=== PATIENT | female | born 1945 | race Caucasian/White ===

== ENCOUNTER 2016-11-08 05:50 | Day surgery (SDC) | payer MEDICARE, OTHER ==
[~2016-11-08] VITALS: Ht 157.5 cm; Wt 76.2 kg
[~2016-11-08 05:50] MED LIST: AMLODIPINE BESYL5 MG PO; BIOTIN5000 MCG PO; CYCLOBENZAPRINE10 MG PO; CYMBALTA60 MG PO; DAYPRO600 MG PO; DOLOPHINE HCL5 MG PO; LEVAQUIN500 MG PO; LORAZEPAM1 MG PO; LYRICA100 MG PO; MICARDIS80 MG PO; OMEPRAZOLE20 MG PO; OXYBUTYNIN CHLOR5 MG PO; PERCOCET 5-3251 EACH PO; PERCOCET 7.5-31 EACH PO; VITAMIN D5000 UNIT PO; VOLTAREN-XR100 MG PO
[2016-11-08] MEDS ORDERED: REQUIP0.5 MG PO (06:12)
[2016-11-08] MEDS ORDERED: MICARDIS80 MG PO (06:13)
--- NOTE | 2016-11-08 08:53 | NUR ---
11/08/16 0853 Elke Hui 0847 PATIENT ARRIVES SLEEPING, ORAL AIRWAY IN PLACE. RESP EVEN AND UNLABORED. MASK AT 6 LITERS. 0850 PATIENT RESPONDS TO VERBAL STIMULI, ORAL AIRWAY REMOVED.
--- NOTE | 2016-11-08 09:40 | NUR ---
PT RESTING IN BED, ALERT AND ORIENTED. SHE SEEMED PREPARED AND REALLY READY FOR SOME RELIEF FOLLOWING HER LAP BRET. SHE MENTIONED THAT HER IS IN [place], AND WAS UNABLE TO GET BACK IN TIME TO BE HERE. SHE DROVE HERSELF THIS MORNING, WILL HAVE [facility] CALL FOR A CARERIDE FOR PT WHEN SHE IS READY TO RETURN HOME. PT REQUESTED PRAYER, WILL FOLLOW NEEDED
--- NOTE | 2016-11-08 10:00 | NUR ---
0940: PATIENT BACK IN DAY SURGERY ROOM FROM PACU. VERY DROWSY, BUT AWAKENS TO VOICE EASILY. FALLS BACK TO SLEEP EASILY. STATES PAIN IMPROVED. IV SITE WNL. ABDOMINAL DRESSINGS X 4. MODERATE AMOUNT OF SHADOWING SEEN ON FAR RIGHT ABDOMINAL TROCAR SITE DRESSING. SCDs ON. CALL LIGHT WITHIN REACH. WILL LET REST FOR NOW. EDUCATED PATIENT NOT TO ATTEMPT OOB WITHOUT ASSISTANCE.
--- NOTE | 2016-11-08 13:10 | NUR ---
1135: PATIENT ASSISTED OOB AND TO BATHROOM. GAIT STEADY. VOID WITHOUT DIFFICULTY. GAIT STEADY BACK TO ROOM. MEDICATED FOR PAIN WITH IV DILAUDID. SANDWICH ORDERED. CALL LIGHT WITHIN REACH. 1235: PATIENT TOLERATED SANDWICH. MEDICATED FOR PAIN WITH 2 TABS OF PERCOCET. CALL LIGHT WITHIN REACH.
[2016-11-08] MEDS ORDERED: PERCOCET 5-3251 EACH PO (14:55)
--- NOTE | 2016-11-09 08:29 | OR ---
[facility] [address] [place], [place] [address] Signed DATE OF PROCEDURE: 11/08/16 PREOPERATIVE DIAGNOSES Chronic cholecystitis with cholelithiasis. Elevated liver function test. POSTOPERATIVE DIAGNOSES Chronic cholelithiasis with Choledocholithiasis. Elevated liver function tests. PROCEDURES Laparoscopic cholecystectomy with intraoperative cholangiogram. Needle liver biopsy. ESTIMATED BLOOD LOSS: Minimal. FINDINGS Svetlana had a small stone in her distal common bile duct. She did have some dilation to the cystic and common bile duct. The common bile duct stone was mobile. Contrast did flow into the duodenum. She also had chronic inflammatory changes to the gallbladder wall with multiple small 3-4 mm black cholesterol stones in her gallbladder. Overall, her liver had good color and just a little bit of fibrosis along the edge. INDICATIONS Svetlana is a 70-year-old female who has had significant trouble with right upper quadrant and epigastric abdominal pain associated with nausea. It radiates through to her back. She ended up with an ultrasound and there were multiple mobile gallstones in her gallbladder. It was thought there were gallstones up to 1.3 cm in diameter. However, we found 2 lymph nodes in the triangle of Calot that I suspect were both about a centimeter or so in size and that is probably what the ultrasound was seeing. Again, the common bile duct was a little dilated around 8.3 mm in diameter. She also seemed to cordoba v e a little atrophy of the pancreas on a previous CT scan, the reasons were not clear. She says she has not drank in the past. She does not describe any recurrent episodes of pancreatitis. We see that her preoperative labs showed that her AST is 279, ALT i s 698, alkaline phosphatase is 309, total bilirubin is normal at 0.6. She is a little anemic with a hemoglobin of 10.2 and a mean cell volume of 78. I had met with Svetlana in the office and I gave her a booklet on the gallbladder. We discussed the location and function of the gallbladder. We discussed laparoscopic versus open cholecystectomy. She understands the expected intra and postop course. There is risk to surgery including, but not limited to bleeding, infection, scarring, change in contour of the s kin, damage to bowel, damage to the main bile duct, incisional hernias and other unforeseen comorbidities. There is always the possible need for ERCP for patients who have Electronically Signed By: COURTNEY JAMA MD 11/09/16 0829 PATIENT NAME: SVETLANA ESCOTO OPERATIVE REPORT DATE OF : 49 PHYSICIAN: COURTNEY JAMA MD REPORT #: [id number] REPORT IS CONFIDENTIAL AND NOT TO BE RELEASED WITHOUT AUTHORIZATION [facility] [address] [place] [id number] Signed cholelithiasis. She had expressed understanding and wished to proceed. PROCEDURE NOTE Svetlana was taken into our operating room and placed in the supine position under general endotracheal tube anesthesia. She was given preoperative antibiotics along with subcutaneous heparin. SCDs were utilized. She was then prepped and draped in the usu al sterile fashion. All trocars were placed in usual positions under direct visualization of the camera without difficulty. The gallbladder was grasped and elevated in the right upper quadrant. She has a very long floppy, chronically inflamed gallbladder. We had taken pictures throughout for photo documentation. The triangle of Calot was carefully dissected free and a clip was placed across the cystic duct and it was divided. The 2 lymph nodes of Calot were dissected free and left in situ. We then inserted our intraoperative cholangiogram into the cystic duct. The intraoperative cholangiogram was performed as above. The cystic duct stump was secured with a PDS Endoloop and 2 clips were placed on the cystic duct stump to andrew its location. After this, the gal l bladder was carefully removed from the gallbladder fossa with the help of the cautery and placed into an EndoCatch bag. The right upper quadrant was irrigated and suctioned out until clear. We then took a core needle biopsy of the right lobe of the liver several centimeters behind the gallbladder fossa. Hemostasis was easily achieved with the cautery. After this, we used our laparoscopic suturing device to pass 0 Vicryl suture on either side of the fascia of the subxiphoid trocar site. This was tied down t o close this fascia primarily. After this, the gas was allowed to escape and all the remaining trocars were removed. The gallbladder was passed off the field and opened on the back table via our circulating nurse. We closed the fascia of the supraumbilical trocar site with interrupted [id number] and simple 0 Vicryl sutures. Local anesthetic was copiously injected into all trocar sites. Each trocar site was irrigated and suctioned out until clear. The skin and dermis of each trocar site was closed with interrupted 3-0 subcuticular Monocryl sutures. Dry gauze and tape was applied to all incisions. Svetlana was awakened from her anesthesia, extubated in the OR, and taken to recovery room in stable condition. MD CHAO Cervantes/Modl /[id number] cc: Electronically Signed By: COURTNEY JAMA MD 11/09/16 0829 PATIENT NAME: SVETLANA ESCOTO OPERATIVE REPORT DATE OF : 49 PHYSICIAN: COURTNEY JAMA MD REPORT #: [id number] REPORT IS CONFIDENTIAL AND NOT TO BE RELEASED WITHOUT AUTHORIZATION [facility] [address] [place] [address] Signed MD Parish Rhoades MD Electronically Signed By: COURTNEY JAMA MD 11/09/16 0829 PATIENT NAME: SVETLANA ESCOTO OPERATIVE REPORT DATE OF : 49 PHYSICIAN: COURTNEY JAMA MD REPORT #: [id number] REPORT IS CONFIDENTIAL AND NOT TO BE RELEASED WITHOUT AUTHORIZATION
== END 2016-11-08 15:25 | disposition home or self-care (01) ==
LOC: DS 05:50
PROVIDERS: Colon & Rectal Surgery
PROC: BF12YZZ Fluoroscopy of Gallbladder using Other Contrast (ICD-10-PCS; 2016-11-08)
PROC: 0FB00ZX Excision of Liver, Open Approach, Diagnostic (ICD-10-PCS; 2016-11-08)
PROC: 0FT44ZZ Resection of Gallbladder, Percutaneous Endoscopic Approach (ICD-10-PCS; principal; 2016-11-08 06:45)
DX: K80.10 Calculus of gallbladder with chronic cholecystitis without obstruction (principal); K73.9 Chronic hepatitis, unspecified; I25.10 Atherosclerotic heart disease of native coronary artery without angina pectoris; I10 Essential (primary) hypertension; Q21.1 Atrial septal defect; G47.33 Obstructive sleep apnea (adult) (pediatric); K21.9 Gastro-esophageal reflux disease without esophagitis; Z87.442 Personal history of urinary calculi; M85.80 Other specified disorders of bone density and structure, unspecified site; F32.9 Major depressive disorder, single episode, unspecified; G89.4 Chronic pain syndrome; M79.7 Fibromyalgia; Z95.0 Presence of cardiac pacemaker; Z90.711 Acquired absence of uterus with remaining cervical stump; E66.01 Morbid (severe) obesity due to excess calories; Z98.84 Bariatric surgery status; Z88.5 Allergy status to narcotic agent; Z88.8 Allergy status to other drugs, medicaments and biological substances; Z68.31 Body mass index [BMI] 31.0-31.9, adult; Z98.890 Other specified postprocedural states; Z79.899 Other long term (current) drug therapy
CPT/HCPCS: 00790; 74300; 88304; 88307; 88313; J0360; J1170; J1644; J1885; J1956; J2250; J2405; J2550; J2704; J3010; J7120; Q9967

== ENCOUNTER 2017-04-27 11:50 | Emergency (ER) | payer MEDICARE, OTHER ==
[~2017-04-27] VITALS: Ht 157.5 cm; Wt 76.2 kg
[~2017-04-27 11:50] MED LIST changes: +REQUIP0.5 MG PO
[2017-04-27] MEDS ORDERED: CLONAZEPAM0.5 MG PO (12:04)
[2017-04-27] MEDS ORDERED: PRAMIPEXOLE DI0.5 MG PO (12:05)
[2017-04-27] MEDS ORDERED: VENTOLIN HFA18 GM (12:06)
[2017-04-27] MEDS ORDERED: IRON236 MG PO (12:06)
[2017-04-27] MEDS ORDERED: METOLAZONE10 MG PO (12:07)
[2017-04-27] MEDS ORDERED: BISOPROLOL FUMA10 MG PO (12:08)
[2017-04-27] MEDS ORDERED: ALDACTONE25 MG PO (12:09)
[2017-04-27] MEDS ORDERED: PROAIR HFA8.5 GM INH (15:52)
[2017-04-27] MEDS ORDERED: METHYLPREDNISOLO4 M1 PO (15:57)
== END 2017-04-27 16:19 | disposition home or self-care (01) ==
LOC: ED 11:50
DX: J45.901 Unspecified asthma with (acute) exacerbation (principal); J20.9 Acute bronchitis, unspecified; I10 Essential (primary) hypertension; Z88.5 Allergy status to narcotic agent; Z88.1 Allergy status to other antibiotic agents; Z88.8 Allergy status to other drugs, medicaments and biological substances; Z79.899 Other long term (current) drug therapy
CPT/HCPCS: 71046; 80053; 82803; 83880; 84484; 85025; 94640; 96374; 96375; 99284; J1170; J1885; J2930

== ENCOUNTER 2018-07-04 23:52 | Emergency (ER) | payer MEDICARE, OTHER ==
[~2018-07-04] VITALS: Ht 157.5 cm; Wt 86.2 kg
--- OUTSIDE RECORDS SUMMARY | ~2018-07-04 | XMS | Clinical Summary ---
Demographics + + + | Address | [address] | | | [place] [address] | + + + | Home Phone | | + + + | Preferred Language | Unknown | + + + | Marital Status | | + + + | Oriental Orthodox Affiliation | Unknown | + + + | Race | Unknown | + + + | Ethnic Group | Unknown | + + + Author + + + | Author | [facility] | + + + | Organization | [facility] | + + + | Address | Unknown | + + + | Phone | Unavailable | + + + Support + + +---------+ + | Name | Relationship | Address | Phone | + + +---------+ + | Criselda Moser | ECON | Unknown | | + + +---------+ + Care Team Providers + +------+ + | Care School Guidance Counselor Name | Role | Phone | + +------+ + | Ada Owens MD | PP | | + +------+ + Allergies + + + + + + | Active Allergy | Reactions | Severity | Noted | Comments | | | | | Date | | + + + + + + | Cephalexin | Itching | Medium | 03/27/19 | | | | | | 17 | | + + + + + + | Lisinopril | Cough | Low | 12/30/19 | | | | | | 18 | | + + + + + + | Morphine | Hallucinations | Medium | 03/07/19 | | | | | | 15 | | + + + + + + | Hydrocodone-Acetamin | Nausea and Vomiting | Low | 03/07/19 | | | ophen | | | 15 | | + + + + + + Current Medications + + +--------+---------+------+------+-------+ | Prescription | Sig. | Disp. | Refills | Star | End | Statu | | | | | | t | Date | s | | | | | | Date | | | + + +--------+---------+------+------+-------+ | DULoxetine | Take 60 mg by mouth | | | | | Activ | | (CYMBALTA) [address] | daily. | | | | | e | | capsule | | | | | | | + + +--------+---------+------+------+-------+ | pregabalin | Take 100 mg by mouth | | | | | Activ | | (LYRICA) 100 MG | 2 (two) times | | | | | e | | capsule | daily. | | | | | | + + +--------+---------+------+------+-------+ | cyanocobalamin | Take 1,000 mcg by | | | | | Activ | | (VITAMIN B-12) 1000 | mouth daily. | | | | | e | | MCG tablet | | | | | | | + + +--------+---------+------+------+-------+ | calcium | Take 1 tablet by | | | | | Activ | | citrate-vitamin D | mouth daily. | | | | | e | | (CITRACAL+D) 315-200 | | | | | | | | MG-UNIT per tablet | | | | | | | + + +--------+---------+------+------+-------+ | docusate sodium | Take 100 mg by mouth | | | | | Activ | | (COLACE) 50 MG | 2 (two) times | | | | | e | | capsule | daily. | | | | | | + + +--------+---------+------+------+-------+ | ascorbic acid | Take 500 mg by mouth | | | | | Activ | | (VITAMIN C) 250 MG | daily. | | | | | e | | CHEW | | | | | | | + + +--------+---------+------+------+-------+ | Polyethyl | Apply 1 drop to eye | | | | | Activ | | Glycol-Propyl Glycol | 3 (three) times | | | | | e | | (SYSTANE) 0.4-0.3 % | daily. | | | | | | | GEL | | | | | | | + + +--------+---------+------+------+-------+ | diclofenac | Take 75 mg by mouth | | | | | Activ | | (VOLTAREN) 75 MG EC | 2 (two) times daily. | | | | | e | | tablet | | | | | | | + + +--------+---------+------+------+-------+ | clonazePAM | Take 0.5 mg by mouth | | | 09/2 | | Activ | | (KLONOPIN) 0.5 MG | daily. Taking 0.25 | | | 1/20 | | e | | tablet | mg in the day and | | | 17 | | | | | 0.5 mg at night | | | | | | + + +--------+---------+------+------+-------+ | omeprazole | Take 20 mg by mouth | | | | | Activ | | (PRILOSEC) 20 MG | 2 (two) times daily. | | | | | e | | capsule | | | | | | | + + +--------+---------+------+------+-------+ | Biotin 5000 MCG | Take 5,000 mcg by | | | | | Activ | | CAPS | mouth 3 (three) | | | | | e | | | times daily. | | | | | | + + +--------+---------+------+------+-------+ | albuterol | Inhale 2 puffs into | | | | | Activ | | (PROVENTIL | the lungs every 6 | | | | | e | | HFA;VENTOLIN HFA) | (six) hours as | | | | | | | 108 (90 Base) | needed for Wheezing. | | | | | | | MCG/ACT inhaler | | | | | | | + + +--------+---------+------+------+-------+ | diclofenac | Apply topically | | | 05/2 | | Activ | | (VOLTAREN) 1 % | daily. | | | 03/22 | | e | | | | | | 18 | | | + + +--------+---------+------+------+-------+ | bisoprolol | Take 1 tablet by | 90 | 3 | 06/0 | | Activ | | (ZEBETA) 10 MG | mouth daily. | tablet | | 7/20 | | e | | tablet | | | | 18 | | | + + +--------+---------+------+------+-------+ | pramipexole | Take 1 tablet by | | | 10/1 | | Activ | | (MIRAPEX) 1.5 MG | mouth every evening. | | | 6/20 | | e | | tablet | | | | 18 | | | + + +--------+---------+------+------+-------+ | oxybutynin | Take 1 tablet by | | | 11/01 | | Activ | | (DITROPAN-XL) 10 MG | mouth daily. | | | 09/19 | | e | | 24 hr tablet | | | | 18 | | | + + +--------+---------+------+------+-------+ | losartan (COZAAR) | Take 1 tablet by | 30 | 11 | 10/2 | | Activ | | 100 MG tablet | mouth daily. | tablet | | 11/20 | | e | | | | | | 18 | | | + + +--------+---------+------+------+-------+ | furosemide (LASIX) | Take 1 tablet by | 15 | 11 | 10/2 | 10/2 | Activ | | 20 MG tablet | mouth every other | tablet | | 11/20 | 11/20 | e | | | day. | | | 18 | 19 | | + + +--------+---------+------+------+-------+ Active Problems + + + | Problem | Noted Date | + + + | History of gastric bypass | 02/26/2018 | + + + | Mixed hyperlipidemia | 08/07/2017 | + + + | Family history of coronary artery disease | 08/07/2017 | + + + | Ascending aorta enlargement (HCC) | 08/07/2017 | + + + | Moderate tricuspid regurgitation by prior echocardiogram | 08/07/2017 | + + + | Mild pulmonary hypertension (HCC) | 08/07/2017 | + + + | Sleep apnea in adult | 08/07/2017 | + + + | ASD (atrial septal defect) | 08/07/2017 | + + + | Limited scleroderma (HCC) | 01/20/2017 | + + + + + | Last Assessment & Plan: Patient is doing well with no | | complaints will check labs and follow back up in 6 months | + + + + + | Primary osteoarthritis involving multiple joints | 01/20/2017 | + + + + + | Last Assessment & Plan: Stable. Patient is taking OTC | | analgesics PRN for pain. | + + + + + | Pacemaker | 07/12/2015 | + + + + + | Overview: Medtronic | + + + + + | Falls frequently | 09/22/2014 | + + + + + | Last Assessment & Plan: Likely related to polypharmacy and | | gait related issuesFalls likely not related to PPM related- | | device appears to be working normally on interrogationBP is low | | today also could be a reasonWill hold Norvasc and she will | | continue to monitor her BP at home and will hold Metoprolol if | | SBP less than 120.Will refer to neurologyShe has low back pain | | and is on multiple medications for pain like Methadone, | | Lorazepam, Flexeril also could be contributing to falls.She might | | benefit from PT/OTBack evaluation and work up to r/o spinal cord | | stenosis- she reports almost with all falls that her legs give | | away.F/u in 6 months or early as needed.Device interrogations as | | per schedule.Advised fall precautions and use cane for support. | + + + + + | Hailey (type) II atrioventricular block | 03/07/2014 | + + + + + | Last Assessment & Plan: S/p DDD Medtr[employer]- MRI | | compatibleCurrent EKG shows Atrial and ventricular pacing.PPM | | interrogation done shows patient have resting intrinsic HR of 70 | | BPM and PPM is set at constant Ventricular pace at 70 BPM which | | was is reprogrammed to AAIR->DDDR with back up PPM rate at 50 | | BPMDevice clinic follow up. | + + + + + | Chest pain | 03/07/2014 | + + + + + | Last Assessment & Plan: No chest pain anymoreHTN, HLD, AVB | | s/p PPM, Fhx of CAD2d Echo - normal LV systolic functionStress | | MPI - small apical ischemiaCont Norvasc and rest of the current | | managementDiscussed with patient regarding the stress test | | results and management options including coronary angiogram, | | medical management, role of coronary angiogram in diagnosis and | | management of CAD- she opts for medical management - she said the | | chest pain is not there any more and she feels it mostly around | | the pacemaker site and thinks it is from scar tissue arround the | | PPM site.She will consider angiogram if the symptoms are | | increasing in intensity- she would like to think about it She | | feel fine and want to see me only as neededShe was counseled | | about diet, exercise, life style changes.Cont ASA 81mg daily, | | Metoprolol and rest of the current management | + + + +---+ | Sinus arrhythmia | | + +---+ | Hypertension goal BP (blood pressure) < 130/80 | | + +---+ + + | Last Assessment & Plan: Well controlled on current management | + + Resolved Problems + + + + | Problem | Noted | Resolved | | | Date | Date | + + + + | Preop cardiovascular exam | 01/06/20 | | | | 15 | 8 | + + + + + + | Last Assessment & Plan: Preop for spinal injection under | | MAC/local/GAHTN, HLD, AVB s/p PPM, Fhx of CAD2d Echo - normal LV | | systolic functionStress MPI - low risk stress test, no | | significant ischemia, breast attenuation artifact notedCont | | Norvasc and rest of the current managementShe is stable from | | cardiac stand point for planned spinal procedureShe was counseled | | about diet, exercise, life style changes.Cont ASA 81mg daily, | | Metoprolol and rest of the current management | + + Encounters +--------+ + + + + | Date | Type | Specialty | Care Team | Description | +--------+ + + + + | 05/26/ | Documentati | | | Pacemaker Check (in | | 2018 | on Only | | | office) | +--------+ + + + + from Last 3 Months Family History + + +------+ + | Medical History | Relation | Name | Comments | + + +------+ + | Hypertension | Maternal | | | | | Grandmoth | | | | | er | | | + + +------+ + | Stroke | Maternal | | | | | Grandmoth | | | | | er | | | + + +------+ + | Diabetes | Mother | | | + + +------+ + | Hypertension | Mother | | | + + +------+ + + +------+--------+ + | Relation | Name | Status | Comments | + +------+--------+ + | Maternal Grandmother | | | | + +------+--------+ + | Mother | | | | + +------+--------+ + Social History + +-------+ +--------+------+ | Tobacco Use | Types | Packs/Day | Years | Date | | | | | Used | | + +-------+ +--------+------+ | Never Smoker | | | | | + +-------+ +--------+------+ + +---+---+---+ | Smokeless Tobacco: | | | | | Never Used | | | | + +---+---+---+ + + +---------+ + | Alcohol Use | Drinks/We | oz/Week | Comments | | | ek | | | + + +---------+ + | Yes | | | rarely | + + +---------+ + + + + | Sex Assigned at | Date Recorded | | | | + + + | Not on file | | + + + Last Filed Vital Signs + + + + | Vital Sign | Reading | Time Taken | + + + + | Blood Pressure | 154/86 | 12/29/2017 2:06 PM PDT | + + + + | Pulse | 51 | 12/29/2017 2:06 PM PDT | + + + + | Temperature | 36.2 C (97.1 F) | 01/21/2017 10:01 AM PST | + + + + | Respiratory Rate | 18 | 12/29/2017 2:06 PM PDT | + + + + | Oxygen Saturation | 98% | 12/29/2017 2:06 PM PDT | + + + + | Inhaled Oxygen | - | - | | Concentration | | | + + + + | Weight | 87.9 kg (193 lb 12.8 | 12/29/2017 2:06 PM PDT | | | oz) | | + + + + | Height | 157.5 cm (5' 2") | 12/29/2017 2:06 PM PDT | + + + + | Body Mass Index | 35.45 | 12/29/2017 2:06 PM PDT | + + + + Plan of Treatment +--------+ + + + + | Date | Type | Specialty | Care Team | Description | +--------+ + + + + | 08/26/ | Documentati | | | | | 2019 | on Only | | | | +--------+ + + + + | 09/16/ | Office | | [place], | | | 2018 | Visit | | [address] | | | | | | [address], | | | | | | [place] [address] | | | | | | [phone] | | | | | | | | +--------+ + + + + | 11/25/ | Documentati | | | | | 2018 | on Only | | | | +--------+ + + + + | 02/24/ | Documentati | | | | | 2019 | on Only | | | | +--------+ + + + + + + + + + | Health Maintenance | Due Date | Last Done | Comments | + + + + + | Vaccine: | | | | | Dtap/Tdap/Td (1 - | 7 | | | | Tdap) | | | | + + + + + | Breast Cancer | | | | | Screening | 8 | | | | (Mammogram) | | | | + + + + + | Colon Cancer | | | | | Screening | 8 | | | | (Colonoscopy) | | | | + + + + + | Vaccine: Zoster (1 | | | | | of 2) | 8 | | | + + + + + | DEXA SCAN SCREENING | | | | | | 3 | | | + + + + + | Vaccine: | | | | | Pneumococcal 65+ | 3 | | | | Low/Medium Risk (1 | | | | | of 2 - PCV13) | | | | + + + + + | Vaccine: Influenza | | | | | (Season Ended) | 9 | | | + + + + + Results Not on filefrom Last 3 Months Insurance + +--------+ +------+-------+ + | Payer | Benefi | Subscriber | Type | Phone | Address | | | t Plan | ID | | | | | | / | | | | | | | Group | | | | | + +--------+ +------+-------+ + | MEDICARE | MEDICA | [id number] | | | [address] | | | RE | | | | [place] [address] | | | IP-OP | | | | | + +--------+ +------+-------+ + | LEADIO NEIL - | [place] | [id number] | | | [address] [address] | | [place] | [place] | | | | [place] | | | LIFE | | | | [phone] | + +--------+ +------+-------+ + + +--------+ +--------+ + + | Guarantor Name | [employer]oun | Relation to | Date | Phone | Billing Address | | | t Type | Patient | of | | | | | | | | | | + +--------+ +--------+ + + | SVETLANA KUMAR | Person | Self [birth year] Home: | [address] | | | al/Fam | | [phone] | [phone] [place] | | | [place] | | [phone] | + +--------+ +--------+ + +
--- OUTSIDE RECORDS SUMMARY | ~2018-07-04 | XMS | Encounter Summary ---
Demographics + + + | Address | [address] | | | [place] [address] | + + + | Home Phone | | + + + | Preferred Language | Unknown | + + + | Marital Status | | + + + | Taoism Affiliation | Unknown | + + + | Race | Unknown | + + + | Ethnic Group | Unknown | + + + Author + + + | Author | [facility] | + + + | Organization | [facility] | + + + | Address | Unknown | + + + | Phone | Unavailable | + + + Support + + +---------+ + | Name | Relationship | Address | Phone | + + +---------+ + | Criselda Moser | ECON | Unknown | | + + +---------+ + Care Team Providers + +------+ + | Care Director Compensation Name | Role | Phone | + +------+ + | Ada Owens MD | PCP | | + +------+ + Reason for Visit + + + | Reason | Comments | + + + | Pacemaker Check | in office | + + + Encounter Details +--------+ + + + + | Date | Type | Department | Care Team | Description | +--------+ + + + + | 05/26/ | Documentati | [facility] [place] | | Pacemaker Check (in | | 2019 | on Only | [facility] | | office) | | | | [address] | | | | | | [address] | | | | | | [place] [address] | | | | | | [phone] | | | +--------+ + + + + Social History + +-------+ +--------+------+ | [...] on file | | + + + as of this encounter Progress Notes Fortunato Blanco - 05/26/2018 10:30 AM PDTFormatting of this note may be different from donovan hernandez original. PACEMAKER INTERROGATION REPORT Name: Samantha Kumar PCP: Ada Owens : 1945 Primary cardiology provider: Jennifer Pryor Primary electrophysiology provider: None Mode of interrogation: Seen in cardiac device clinic Device: [employer] Battery Longevity: 2.95V. RA Pacin.8% RV Pacin.9% Pacemaker dependent: No Interrogation results Please see the full interrogation report attached Lead function: Lead impedance and threshold value trends have been reviewed and are accepta ble based on most recent evaluation. RA Threshold: 1.0V @ 0.4ms RV Threshold: 1.0V @ 0.4ms RA Amplitude: 1.7mV RV Amplitude: 7.4mV Atrial events: Atrial high rate episodes: None Confirmed episodes of atrial flutter or atrial fibrillation: No Known history of atrial flutter or atrial fibrillation: No Current antithrombotic therapy including: N/A Ventricular events: Ventricular high rate episodes: 1 VT-NS- none since last carelink. Additional comments: None. Programming changes: Temporary programming changes were made for testing and restored to or iginal values. No permanent changes were made. Follow up: The next scheduled interrogation will be in 3 months via remote transmission. Impression: 1. Normal pacemaker function. 2. No significant arrhythmias noted. Testing performed by: Brayd Nguyen, [employer] Associated attestation - Jennifer Pryor, TRANSIT SURVEY WORKER - 06/15/2018 3:28 PM PDTPacer interrog ation: 05/26/2018: Battery longevity 2.95 V, MANAGER RESOURCE 2.81 V RA pacing 17.73% RV pacing 72.84% max t since 05/27/2017 patient activity 0.7 hours/day VT greater than 4 beats one episode, time a nd atrial tachycardia/atrial fibrillation <0.1 hours/day, <0.1 patient activity less than 2 hours/day x 49 weeks increased atrial pacingin this encounter Plan of Treatment +--------+ + + + + | Date | Type | Specialty | Care Team | Description | +--------+ + + + + | 08/26/ | Documentati | Cardiology | | | | 2019 | on Only | | | | +--------+ + + + + | 09/16/ | Office | Cardiology | Ramos Jasmine, | | | 2019 | Visit | | MD Michelle Paulson | | | | | | Dr [address], | | | | | | [place] [address] | | | | | | [phone] | | | | | | | | +--------+ + + + + | 11/25/ | Documentati | Cardiology | | | | 2018 | on Only | | | | +--------+ + + + + | 02/24/ | Documentati | Cardiology | | | | 2018 | on Only | | | | +--------+ + + + + as of this encounter Visit Diagnoses + + | Diagnosis | + + | 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
--- OUTSIDE RECORDS SUMMARY | ~2018-07-04 | XMS | Clinical Summary ---
Demographics + + + | Address | [address] | | | [place] [address] | + + + | Home Phone | | + + + | Preferred Language | Unknown | + + + | Marital Status | | + + + | Taoism Affiliation | Unknown | + + + | Race | Unknown | + + + | Ethnic Group | Unknown | + + + Author + + + | Author | [facility] | + + + | Organization | [facility] | + + + | Address | Unknown | + + + | Phone | Unavailable | + + + Support + + +---------+ + | Name | Relationship | Address | Phone | + + +---------+ + | Criselda Moser | ECON | Unknown | | + + +---------+ + Care Team Providers + +------+ + | Care Senior Network Security Architect Name | Role | Phone | + [...] | | | | | | [place] [address] | | | | | | [phone] | | | | | | | [...] +------+-------+ + | MEDICARE | MEDICA | [id number] | | | [address] | | | RE | | | | [place] [address] | | | IP-OP | | | | | + +--------+ +------+-------+ + | ELADIO NEIL - | [place] | [phone] | | | [address] [address] | | [place] | E FOR | | | | [place] | | | LIFE | | | | [address] | + +--------+ +------+-------+ + + +--------+ [...] | [place] | | | [phone] | [address] | + +--------+ +--------+ + +
--- OUTSIDE RECORDS SUMMARY | ~2018-07-04 | XMS | Encounter Summary ---
Demographics + + + | Address | [address] | | | [place] [address] | + + + | Home Phone | | + + + | Preferred Language | Unknown | + + + | Marital Status | | + + + | Mu-Ism Affiliation | Unknown | + + + | Race | Unknown | + + + | Ethnic Group | Unknown | + + + Author + + + | Author | [facility] | + + + | Organization | [facility] | + + + | Address | Unknown | + + + | Phone | Unavailable | + + + Support + + +---------+ + | Name | Relationship | Address | Phone | + + +---------+ + | Criselda Moser | ECON | Unknown | | + + +---------+ + Care Team Providers + +------+ + | Care Plate Cutter Name | Role | Phone | + [...] + | 05/26/ | Documentati | [facility] [place] | | Pacemaker Check (in | | 2019 | on Only | [facility] | | office) | | | | [address] | | | | | | [address] | | | | | | [place] [address] | | | | | | [phone] | | | +--------+ + + + [...] interrogation: Seen in cardiac device clinic Device: [employer] Battery Longevity: 2.95V. RA Pacin.8% RV Pacin.9% [...] No significant arrhythmias noted. Testing performed by: Brady Nguyen, [employer] Associated attestation - Jennifer Pryor, ELECTRONICS SCALE TESTER - 06/15/2018 3:28 PM PDTPacer interrog ation: 05/26/2018: Battery longevity 2.95 V, SUPERVISOR TELLERS 2.81 V RA pacing 17.73% RV pacing [...] | | | | | | [place] [address] | | | | | | [phone] | | | | | | | [...]
--- OUTSIDE RECORDS SUMMARY | ~2018-07-04 | XMS | Clinical Summary ---
Demographics + + + | Address | [address] | | | [place] [address] | + + + | Home Phone | | + + + | Preferred Language | Unknown | + + + | Marital Status | | + + + | Methodist Affiliation | Unknown | + + + | Race | Unknown | + + + | Ethnic Group | Unknown | + + + Author + + + | Author | [facility] | | | and [place] | + + + | Organization | [facility] | | | and [place] | + + + | Address | Unknown | + + + | Phone | Unavailable | + + + Care Team Providers + +------+ + | Care It Security Project Manager Name | Role | Phone | + +------+ + | Parish Murphy MD | PP | | + +------+ + Allergies + + + + + + | Active Allergy | Reactions | Severity | Noted | Comments | | | | | Date | | + + + + + + | Cephalexin | Itching | | 03/27/19 | | | | | | 17 | | + + + + + + | Morphine | Other (See Comments) | | 03/27/19 | Hallucination; | | | | | 17 | rash | + + + + + + | Prednisone | Shortness Of Breath, | High | 04/04/19 | | | | Swelling | | 17 | | + + + + + + | Hydrocodone | Nausea And Vomiting | | 03/27/19 | | | | | | 17 | | + + + + + + Medications + + + +---------+------+------+-------+ | Medication | Sig | Dispensed | Refills | Star | End | Statu | | | | | | t | Date | s | | | | | | Date | | | + + + +---------+------+------+-------+ | cyclobenzaprine | Take 0.5 to 1 tablet | | 0 | | | Activ | | (FLEXERIL) 10 mg | by mouth up to 3 | | | | | e | | tablet | times daily as | | | | | | | | needed for muscle | | | | | | | | spasms | | | | | | + + + +---------+------+------+-------+ | DULoxetine | Take 60 mg by mouth | | 0 | | | Activ | | (CYMBALTA) [address] | Daily. | | | | | e | | capsule | | | | | | | + + + +---------+------+------+-------+ | diclofenac | Take 75 mg by mouth | | 0 | | | Activ | | (VOLTAREN) 75 mg EC | 2 times daily. | | | | | e | | tablet | | | | | | | + + + +---------+------+------+-------+ | ergocalciferol | Take 50,000 Units by | | 0 | | | Activ | | (VITAMIN D-2) 50,000 | mouth Once a week. | | | | | e | | units capsule | | | | | | | + + + +---------+------+------+-------+ | LORazepam (ATIVAN) | Take 4 mg by mouth | | 0 | | | Activ | | 2 MG tablet | every evening. | | | | | e | + + + +---------+------+------+-------+ | methadone 5 mg | Take 5 mg by mouth | | 0 | | | Activ | | tablet | every evening. | | | | | e | + + + +---------+------+------+-------+ | pregabalin | Take 100 mg by mouth | | 0 | | | Activ | | (LYRICA) 100 mg | nightly. | | | | | e | | capsule | | | | | | | + + + +---------+------+------+-------+ | omeprazole | Take 20 mg by mouth | | 0 | | | Activ | | (PRILOSEC) 20 mg | 2 times daily | | | | | e | | capsule | (before meals). | | | | | | + + + +---------+------+------+-------+ | telmisartan | Take 80 mg by mouth | | 0 | | | Activ | | (MICARDIS) 80 MG | Daily. | | | | | e | | tablet | | | | | | | + + + +---------+------+------+-------+ Active Problems + + + | Problem | Noted Date | + + + | Pacemaker | 03/28/2016 | + + + + + | Overview: Medtronic; for bradycardia; placed 08/29/11 | + + + + + | DAFNE on CPAP | 03/28/2016 | + + + | Fibromyalgia | 03/28/2016 | + + + | Ureteral obstruction, right | 03/28/2016 | + + + | Ureteral calculus, right | 03/27/2016 | + + + | Hydronephrosis, right | 03/27/2016 | + + + | Renal colic on right side | 03/27/2016 | + + + | Azotemia | 03/27/2016 | + + + Family History + + +------+ + | Medical History | Relation | Name | Comments | + + +------+ + | Heart disease | Father | | | + + +------+ + | Diabetes | Mother | | | + + +------+ + + +------+ + + | Relation | Name | Status | Comments | + +------+ + + | Father | | | | + +------+ + + | Mother | | Alive | | + +------+ + + Social History + +-------+ +--------+------+ | Tobacco Use | Types | Packs/Day | Years | Date | | | | | Used | | + +-------+ +--------+------+ | Never Smoker | | | | | + +-------+ +--------+------+ + + +---------+ + | Alcohol Use | Drinks/We | oz/Week | Comments | | | ek | | | + + +---------+ + | No | 0 | 0.0 | | | | Standard | | | | | drinks or | | | | | | | | | | equivalen | | | | | t | | | + + +---------+ + + + + | Sex Assigned at | Date Recorded | | | | + + + | Not on file | | + + + + + + + | Job Start Date | Occupation | Industry | + + + + | Not on file | Not on file | Not on file | + + + + + + + + | Travel History | Travel Start | Travel End | + + + + + + | No recent travel history available. | + + Last Filed Vital Signs + + + + | Vital Sign | Reading | Time Taken | + + + + | Blood Pressure | 132/88 | 04/04/20161443 PST | + + + + | Pulse | 64 | 04/04/20161443 PST | + + + + | Temperature | 36.6 C (97.9 F) | 03/28/20161434 PST | + + + + | Respiratory Rate | 16 | 04/04/20161443 PST | + + + + | Oxygen Saturation | 100% | 03/28/20161614 PST | + + + + | Inhaled Oxygen | - | - | | Concentration | | | + + + + | Weight | 72.6 kg (160 lb 1.6 | 04/04/20161443 PST | | | oz) | | + + + + | Height | 157.5 cm (5' 2") | 04/04/20161443 PST | + + + + | Body Mass Index | 29.28 | 04/04/20161443 PST | + + + + Plan of Treatment + + + + + | Health [...] | | + + + + + Implants + +-------+--------+ +--------+--------+--------+ | Implanted | Type | Area | Manufacture | Device | Shelf | Model | | | | | r | | Expira | / | | | | | | Identi | tion | Serial | | | | | | fier | Date | / Lot | + +-------+--------+ +--------+--------+--------+ | Stent Uro Unvrs Sft [id number] 26cm | Stent | Right: | ELIS GILLIS | | 01/16/ | [id number] | | - [id number]: Qty: 1 | | | INCORPORATE | | 2018 | / | | on 03/28/2016 by Sanket, | | Ureter | D | | | /[id number] | | Rojas Nguyen MD | | | | | | 65 | + +-------+--------+ +--------+--------+--------+ Results Not on filefrom Last 3 Months Insurance + +--------+ +--------+ +---------+--------+ | Payer | Benefi | Subscriber | Effect | Phone | Address | Type | | | t Plan | ID | ramiro | | | | | | / | | Dates | | | | | | Group | | | | | | + +--------+ +--------+ +---------+--------+ | MEDICARE | MEDICA | [id number] | 04/03/19 | [phone] | | Medica | | | RE | | 06-Pre | 5 | | re | | | PART A | | sent | | | | | | AND B | | | | | | + +--------+ +--------+ +---------+--------+ | | TRICAR | [id number] | | [phone] | | Indemn | | | E FOR | | 017-Pr | 0 | | ity | | | LIFE | | esent | | | | + +--------+ +--------+ +---------+--------+ + +--------+ +--------+ + + | Guarantor Name | Accoun | Relation to | Date | Phone | Billing Address | | | t Type | Patient | of | | | | | | | | | | + +--------+ +--------+ + + | Samantha Kumar | Person | Self [birth year] | [address] | | | al/Fam | | 1946 | [phone] | [place] | | | [place] | | | [address] (Home) | [address] | + +--------+ +--------+ + + Advance Directives Patient has advance care planning documents, and code status on file. For more information, please contact:[facility] [address] + + + + + | Code Status | Date | Date | Comments | | | Activated | Inactivated | | + + + + + | Full Code | 03/28/2016 | 03/28/2016 | | | | 0:01 | 18:46 | | + + + + +
--- OUTSIDE RECORDS SUMMARY | ~2018-07-04 | XMS | Clinical Summary ---
Demographics + + + | Address | [address] | | | [place] [address] | + + + | Home Phone | | + + + | Preferred Language | Unknown | + + + | Marital Status | | + + + | Restorationist Affiliation | Unknown | + + + | Race | Unknown | + + + | Ethnic Group | Unknown | + + + Author + + + | Author | [facility] | | | and [place] | + + + | Organization | [facility] | | | and [place] | + + + | Address | Unknown | + + + | Phone | Unavailable | + + + Care Team Providers + +------+ + | Care Roving Machine Operator Name | Role | Phone | + [...] | ELIS GILLIS | | 01/16/ | [id number] | | - [id number]: Qty: 1 | | | INCORPORATE | | 2018 | / | | on 03/28/2016 by Sanket, | | Ureter | D | | | [id number] | | Rojas Nguyen MD | | [...] +--------+ +---------+--------+ | MEDICARE | MEDICA | [id number] | 04/03/19 | [phone] | | Medica | | | RE | | 06-Pre | 5 | | re | | | PART A | | sent | | | | | | AND B | | | | | | + +--------+ +--------+ +---------+--------+ | | TRICAR | [id number] | | [phone] | | Indemn | [...] [place] | | | 4 (Home) | [address] | + +--------+ +--------+ + + Advance Directives Patient has advance care planning documents, and code status on file. For more information, please contact:[facility] [place] [address] + + + + + | Code Status | Date | Date | Comments | | | Activated | Inactivated | | + + + + + | Full Code | 03/28/2016 | 03/28/2016 | | | | 0:01 | 18:46 | | + + + + +
[~2018-07-04 23:52] MED LIST changes: +ALDACTONE25 MG PO; +BISOPROLOL FUMA10 MG PO; +CIPRO500 MG PO; +CLONAZEPAM0.5 MG PO; +IRON236 MG PO; +METHYLPREDNISOLO4 M1 PO; +METOLAZONE10 MG PO; +PRAMIPEXOLE DI0.5 MG PO; +PROAIR HFA8.5 GM INH; +VENTOLIN HFA18 GM; +ZOFRAN4 MG PO
--- OUTSIDE RECORDS SUMMARY | 2018-07-04 23:54 | XMS ---
PreManage Notification: SVETLANA ESCOTO Security Hydraulic Mechanic Events No recent Security Events currently on file CRITERIA MET - PDMP CARE PROVIDERS YOHAN MENDOZA Primary Care Current PHONE: [phone] Waqas has no Care Guidelines for this patient. EBrianna VISIT COUNT (12 MO.) 2 BHAKTI Gomez TOTAL 2 NOTE: Visits indicate total known visits. 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
[2018-07-05] MEDS ORDERED: PROTONIX40 MG PO (02:14)
--- NOTE | 2018-07-05 12:37 | EKG ---
[facility] [address] [place] [address] Signed Normal sinus rhythm Right bundle branch block T wave abnormality, consider lateral ischemia Abnormal ECG When compared with ECG of 31-OCT-2016 09:24, Sinus rhythm has replaced Electronic ventricular pacemaker Confirmed by MIHAELA VYAS DO ([id number]) on 07/05/2018 12:37:09 PM Electronically Signed By: MIHAELA VYAS DO 07/05/18 1237 PATIENT NAME: SVETLANA ESCOTO Electrocardiogram DATE OF : 49 PHYSICIAN: MIHAELA VYAS DO REPORT #: [id number] REPORT IS CONFIDENTIAL AND NOT TO BE RELEASED WITHOUT AUTHORIZATION
== END 2018-07-05 02:25 | disposition home or self-care (01) ==
LOC: ED 23:52
DX: R07.89 Other chest pain (principal); I10 Essential (primary) hypertension; J45.909 Unspecified asthma, uncomplicated; Z95.0 Presence of cardiac pacemaker; Z90.710 Acquired absence of both cervix and uterus; Z98.84 Bariatric surgery status; Z88.5 Allergy status to narcotic agent; Z88.1 Allergy status to other antibiotic agents; Z88.8 Allergy status to other drugs, medicaments and biological substances; Z79.899 Other long term (current) drug therapy
CPT/HCPCS: 71045; 80053; 84484; 85025; 85379; 93005; 93010; 96374; 99285-25; J1885